=== PATIENT | female | born 1945 | race Caucasian/White ===

== ENCOUNTER 2022-11-15 13:17 | Outpatient (CLI) | payer MEDICARE | END 2022-11-15 13:18 | disposition home or self-care (01) | LOC: CSHMAMMO 13:17 | PROVIDERS: ATTEND Family Medicine | DX: Z12.31 Encounter for screening mammogram for malignant neoplasm of breast (principal); N63.11 Unspecified lump in the right breast, upper outer quadrant | CPT/HCPCS: 77063; 77067 ==

== ENCOUNTER 2022-11-21 13:21 | Outpatient (CLI) | payer MEDICARE | END 2022-11-21 13:22 | disposition home or self-care (01) | LOC: CSHULT 13:21 | PROVIDERS: ATTEND Family Medicine | DX: N63.10 Unspecified lump in the right breast, unspecified quadrant (principal); N60.01 Solitary cyst of right breast ==